=== PATIENT | female | born 1975 | race Caucasian/White ===

== ENCOUNTER 2019-03-30 17:05 | Emergency (ER) | payer MEDICAID ==
[~2019-03-30] VITALS: Ht 162.6 cm; Wt 77.1 kg
[2019-03-30 17:06] VITALS: BP 147/68
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
== END 2019-03-30 17:15 ==
LOC: MED 17:05
DX: M25.531 Pain in right wrist (principal); Z02.89 Encounter for other administrative examinations
CPT/HCPCS: 99283